=== PATIENT | female | born 1975 | race Caucasian/White ===

== ENCOUNTER 2022-10-19 07:21 | Emergency (ER) | payer OTHER ==
[~2022-10-19] VITALS: Ht 175.3 cm; Wt 56.7 kg
[2022-10-19 07:21] VITALS: BP_SYST 152; PULSE 73; RESP 18; TEMP 98.2; O2SAT 99
[2022-10-19] MEDS ORDERED: IBUP-1969 PO (08:47)
[2022-10-19] MEDS ORDERED: IBUPROFEN 600 MG TABLET PO ONE (09:00)
[2022-10-19 09:23] VITALS: BP_SYST 152; PULSE 73; RESP 18; TEMP 98.2; O2SAT 99
== END 2022-10-19 09:26 | disposition home or self-care (01) ==
LOC: SED 07:21
DX: I82.612 Acute embolism and thrombosis of superficial veins of left upper extremity (principal); R22.32 Localized swelling, mass and lump, left upper limb; Z88.0 Allergy status to penicillin; Z88.5 Allergy status to narcotic agent; Z79.899 Other long term (current) drug therapy
CPT/HCPCS: 93971; 99284